=== PATIENT | male | born 1940 | race Caucasian/White ===

== ENCOUNTER 2016-04-12 15:59 | Emergency (ER) | payer MEDICARE ==
[~2016-04-12 15:59] MED LIST: ACET-58 PO; AMIT10TA PO; AMLO5TAB2 PO; ASCO10002 PO; CHOL10002 PO; CIPR500T94 PO; CRESTOR10 MG PO; EPLE25TA PO; GLUC1CAP14 PO; HYDR25TA9 PO; LEVO175T5 PO; LEVO500T38 PO; LISI40TA PO; METO50TA10 PO; MULT-208 PO; OMEP20TA63 PO; POTA10TA5 PO; TAMS0.4C97 PO; TRAM50TA PO; VITA1CAP PO
--- NOTE | 2016-04-12 16:48 | PHYS DOC ---
Past Medical History Past Medical History: Diabetes-Type II, High Cholesterol, Hypertension Past Surgical History: Other Additional Past Surgical Histo: thyroidectomy, prostate, hernia Alcohol Use: None Drug Use: None Adult General Chief Complaint Chief Complaint: ACCIDENTAL INGESTION HPI HPI Patient is a 76 year old male presents after accidentally taking his 's morning medications at around 3:40 PM this afternoon. These medications were in a cup, and he thought they were his own. He took the followin mg Plavix , 500 mg metformin, 40 mg Protonix, 3.125 mg Corag, 60 mg Cymbalta, and 325 mg ferrous sulfate. He denies any acute illness or symptoms. He says that he feels fine, but just wanted to make sure that these medications would not cause him any problems. Review of Systems Review of Systems Constitutional: Denies fever or chills Eyes: Denies change in visual acuity, redness, or eye pain HENT: Denies nasal congestion or sore throat Respiratory: Denies cough or shortness of breath Cardiovascular: Denies chest pain or palpitations. GI: Denies abdominal pain, nausea, vomiting, bloody stools or diarrhea : Denies dysuria or hematuria Musculoskeletal: Denies back pain or joint pain Integument: Denies rash or skin lesions Neurologic: Denies headache, focal weakness or sensory changes Allergies Allergies Allergies Coded Allergies Type Severity Reaction Last Updated Verified Sulfa (Sulfonamide Antibiotics) Allergy Intermediate 04/14/14 Yes NSAIDS (Non-Steroidal Anti-Inflamma Adverse Reaction Intermediate hematuria Yes Physical Exam Physical Exam Constitutional: Well developed, well nourished, no acute distress, non-toxic appearance. HENT: Normocephalic, atraumatic, bilateral external ears normal, oropharynx moist, no oral exudates, nose normal. Eyes: PERRLA, EOMI, conjunctiva normal, no discharge. Neck: Normal range of motion, no tenderness, supple, no stridor. Cardiovascular:Heart rate regular rhythm, no murmur Lungs & Thorax: Bilateral breath sounds clear to auscultation Abdomen: Bowel sounds normal, soft, no tenderness, no masses, no pulsatile masses. Skin: Warm, dry, no erythema, no rash. Back: No tenderness, no CVA tenderness. Extremities: No tenderness, no cyanosis, ROM intact, no edema. Neurologic: Alert and oriented X 3, normal motor function, no focal deficits noted. Psychologic: Affect normal, judgement normal, mood normal. Current Patient Data Vital Signs Vital Signs Date Time Temp Pulse Resp B/P Pulse Ox O2 Delivery O2 Flow Rate FiO2 04/12/16 16:05 97.5 91 18 164/93 99 Room Air 97.5 Lab Values Laboratory Tests Test 04/12/16 16:13 Glucose (Fingerstick) 159mg/dL (70-99) H EKG EKG [] Radiology/Procedures Radiology/Procedures [] Course & Med Decision Making Course & Med Decision Making Pertinent Labs and Imaging studies reviewed. (See chart for details) Patient looks well and has stable vital signs. He has no acute physical complaints. It is unlikely that single doses of his 's medications are going to cause him any problems or symptoms. Return precautions were discussed and primary care follow-up was recommended. All questions were answered prior to discharge. Dragon Disclaimer Dragon Disclaimer This electronic medical record was generated, in whole or in part, using a voice recognition dictation system. Departure Departure Impression: Primary Impression: Accidental medication error Disposition: 01 HOME, SELF-CARE Condition: GOOD Referrals: BARBARA WHITESIDE (PCP) Patient Instructions: Basics of Medication Management Additional Instructions: If you develop any concerning changes or symptoms, return to the emergency Department. Otherwise, be very careful with your medications. Follow-up with your primary doctor in clinic soon. Problem Qualifiers Primary Impression: Accidental medication error Encounter type: initial encounter Qualified Code: T50.901A - Poisoning by unspecified drugs, medicaments and biological substances, accidental ( unintentional), initial encounter RADHA SORTO MD Apr 12, 2016 16:48
[2016-04-12 17:00] VITALS: BP 155/103
== END 2016-04-12 17:21 | disposition home or self-care (01) ==
LOC: ER 15:59
DX: T45.521A Poisoning by antithrombotic drugs, accidental (unintentional), initial encounter (principal); T46.5X1A Poisoning by other antihypertensive drugs, accidental (unintentional), initial encounter; T43.211A Poisoning by selective serotonin and norepinephrine reuptake inhibitors, accidental (unintentional), initial encounter; T45.4X1A Poisoning by iron and its compounds, accidental (unintentional), initial encounter; E11.9 Type 2 diabetes mellitus without complications; E78.00 Pure hypercholesterolemia, unspecified; I10 Essential (primary) hypertension; Z88.2 Allergy status to sulfonamides; Z88.6 Allergy status to analgesic agent; Y92.89 Other specified places as the place of occurrence of the external cause
CPT/HCPCS: 82947; 99283

== ENCOUNTER → 2016-06-06 | Outpatient (CLI) | payer MEDICARE ==
--- NOTE | 2016-06-06 15:56 | KCIC ---
Examination: CT of the abdomen pelvis without contrast. HISTORY History of left flank pain for 3 weeks COMPARISON 12/08/2014. TECHNIQUE Axial CT images of the abdomen pelvis were performed without contrast. Coronal sagittal reformats were performed. Exposure: One or more of the following dose reduction technique were utilized for this examination: 1. Automated exposure control. 2.Adjustment of MA and /or KV according to patient size. 3. Use of iterative reconstruction technique. Findings: The visualized bibasilar lungs are grossly appears unremarkable. No evidence of free air identified in the abdomen. The evaluation of the solid organs is limited due to lack of IV contrast. The evaluation of bowel is limited lack of oral contrast. The visualized non contrasted liver, adrenals grossly appears unremarkable. The gallbladder is mildly distended. The visualized pancreas grossly appears unremarkable. There is a peripherally calcified cystic identified in the spleen similar to prior exam likely a cyst or old hematoma. The small bowel is nondilated. The visualized appendix grossly appears unremarkable. Feces and gas noted in the colon. The urinary bladder is mildly distended. No evidence of hydronephrosis. Bilateral exophytic cortical renal cysts and a renal sinus cysts are similar to prior exam. Intrarenal collecting system calculi identified in the left kidney grossly similar to prior exam measuring up to 1 centimeter. Two small calcifications identified in the lumen of the urinary bladder posteriorly measuring up to 9.5 millimeters likely bladder calculi. Enlarged appearing prostate gland displacing the urinary bladder anteriorly, grossly similar to prior exam. Coarse calcifications identified in the prostate. There is mild thickened appearance of the urinary bladder wall. Moderate degenerative changes lumbar spine. IMPRESSION - Intrarenal collecting system calculi identified in the left kidney measuring up to 1 centimeter, similar to prior exam. No evidence of hydronephrosis. - Two small bladder calculi identified with the largest measuring 9.5 millimeters in the urinary bladder, again identified. - Enlarged appearing prostate gland again identified. - Bilateral renal cysts. Electronically signed by: Estevan Coleman (Jun 06, 2016 15:55:29)
== END | disposition home or self-care (01) ==
LOC: KCIC CT 12:12
PROVIDERS: ATTEND Urology
DX: R10.9 Unspecified abdominal pain (principal); M54.9 Dorsalgia, unspecified; N28.1 Cyst of kidney, acquired
CPT/HCPCS: 74176

== ENCOUNTER → 2016-06-13 | Outpatient (CLI) | payer MEDICARE ==
--- NOTE | 2016-06-13 17:02 | KCIC ---
MRI lumbar spine without contrast Indication: Low back pain. Multiplanar multi sequence imaging of the lumbar spine was performed without contrast. No prior studies are available for comparison. Curvature and alignment of the lumbar spine is normal. There appears to be a transitional lumbosacral vertebral body. The most inferior lumbar type vertebral body will be considered L5 for counting purposes. Vertebral body heights are maintained. No acute compression fracture is seen. No geographic marrow lesion is identified. There is multilevel degenerative disc disease. There is variable disc space narrowing and desiccation noted. The conus is unremarkable at the L1-2 level. L1-2: No definite central canal or neural foraminal stenosis is seen. L2-3: There is broad-based disc/osteophyte complex indenting the ventral thecal sac. Central canal remains patent but there is narrowing of the lateral recesses bilaterally. Mild bilateral neural foraminal narrowing is seen. L3-4: Hypertrophic facet changes with ligamentous thickening is noted. There is a right paramidline disc bulge indenting the ventral thecal sac. This does result in moderate central canal stenosis. There is also significant right lateral recess stenosis and moderate right and mild left neural foraminal stenosis. L4-5: Marked hypertrophic facet changes and ligamentous thickening does result in severe trefoil stenosis to the central canal. There is significant narrowing of bilateral lateral recesses and moderate bilateral neural foraminal stenosis. L5-S1: There is hypertrophic facet changes. Central canal is patent. Moderate left and mild right neural foraminal stenosis is seen. Paraspinous tissues demonstrate a probable cyst of the right kidney, not entirely included on this exam. Impression: Significant multilevel lumbar spondylosis with multilevel central canal, lateral recess and neural foraminal stenosis. This appears to be most severe at the L4-5 level. Please note that there is transitional lumbosacral vertebral body. Electronically signed by: Benji Nam MD (Jun 13, 2016 17:00:36)
== END | disposition home or self-care (01) ==
LOC: KCIC MRI 16:00
DX: M54.9 Dorsalgia, unspecified (principal); M47.896 Other spondylosis, lumbar region; M48.06 Spinal stenosis, lumbar region
CPT/HCPCS: 72148

== ENCOUNTER 2017-06-06 11:15 | Emergency (ER) | payer MEDICARE ==
[2017-06-06 12:25] LABS: BASO % 0 % (0-3); EOS % 0 % (0-3); HEMATOCRIT 42.5 % (39.0-53.0); HEMOGLOBIN 14.5 g/dL (13.0-17.5); LYMPH # 0.7 x10^3/uL (1.0-4.8); LYMPH % 6 % (24-48); MEAN CORPUSCULAR HEMOGLOBIN 31 pg (25-35); MEAN CORPUSCULAR HGB CONC 34 g/dL (31-37); MEAN CORPUSCULAR VOLUME 90 fL (79-100); MONO # 0.6 x10^3/uL (0.0-1.1); MONO % 5 % (0-9); NEUT # 10.3 x10^3uL (1.8-7.7); NEUT % 88 % (31-73); PLATELET COUNT 225 x10^3/uL (140-400); RED BLOOD COUNT 4.74 x10^6/uL (4.30-5.70); RED CELL DISTRIBUTION WIDTH 14.3 % (11.5-14.5); WHITE BLOOD COUNT 11.7 x10^3/uL (4.0-11.0)
[2017-06-06 12:26] LABS: ADD MAN DIFF? YES
[2017-06-06 12:50] LABS: BILIRUBIN,URINE NEGATIVE (NEG); CLARITY,URINE HAZY; COLOR,URINE YELLOW; GLUCOSE,URINE NEGATIVE (NEG)
[2017-06-06 12:51] LABS: BACTERIA,URINE FEW /HPF (0-FEW); NITRITE,URINE NEGATIVE (NEG); PROTEIN,URINE NEGATIVE (NEG-TRACE); RBC,URINE 0 /HPF (0-2); SQUAMOUS EPITHELIAL CELL,UR OCC /LPF
[2017-06-06 13:08] LABS: % BANDS 3 % (0-9); % BASOS 1 % (0-3); % LYMPHS 3 % (24-48); % MONOS 4 % (0-10); % SEGS 89 % (35-66); PLT ESTIMATE ADEQUATE (ADEQUATE)
[2017-06-06 13:14] LABS: ALBUMIN 3.8 g/dL (3.4-5.0); ALBUMIN/GLOBULIN RATIO 1.1 (1.0-1.7); ALK PHOS 121 U/L (46-116); ALT (SGPT) 42 U/L (16-63); ANION GAP 9 (6-14); AST (SGOT) 24 U/L (15-37); BLOOD UREA NITROGEN 14 mg/dL (8-26); BUN/CREATININE RATIO 13 (6-20); CARBON DIOXIDE 31 mmol/L (21-32); CHLORIDE 103 mmol/L (98-107); CREATININE 1.1 mg/dL (0.7-1.3); GFR 65.1; GLUCOSE 197 mg/dL (70-99); LIPASE 107 U/L (73-393); POTASSIUM 3.7 mmol/L (3.5-5.1); SODIUM 143 mmol/L (136-145); TOTAL BILIRUBIN 0.4 mg/dL (0.2-1.0); TOTAL PROTEIN 7.2 g/dL (6.4-8.2)
[2017-06-06] MEDS: IOHEXOL 300 MG/ML 100ML VIAL. IV (13:15)
[2017-06-06] MEDS: ONDANSETRON PF 4 MG/2 ML VIAL. IV (13:25)
[2017-06-06] MEDS: IV NORMAL SALINE 1000ML BAG 1,000 ML IV (13:25)
[2017-06-06] MEDS: fentaNYL PF VIAL 100 MCG/2 ML VIAL IV (13:30)
[2017-06-06 13:54] LABS: TROPONINI < 0.017 ng/mL (0.000-0.055)
== END 2017-06-06 16:20 | disposition home or self-care (01) ==
LOC: ER 11:15
DX: N23 Unspecified renal colic (principal); E11.9 Type 2 diabetes mellitus without complications; E78.00 Pure hypercholesterolemia, unspecified; I10 Essential (primary) hypertension; Z87.442 Personal history of urinary calculi; Z88.2 Allergy status to sulfonamides; Z88.6 Allergy status to analgesic agent
CPT/HCPCS: 36415; 74177; 80053; 81001; 83690; 84484; 85007; 85025; 87086; 93005; 96361; 96374; 96375; 99285-25; J2405; J3010; J7030; Q9967

== ENCOUNTER 2020-02-27 16:00 | Emergency (ER) | payer MEDICARE ==
[~2020-02-27] VITALS: Ht 182.9 cm; Wt 113.6 kg
[~2020-02-27 16:00] MED LIST changes: +AMLO-186 PO; -AMLO5TAB2 PO; +ASCO100019 PO; -ASCO10002 PO; -GLUC1CAP14 PO; +GLUCOSAMINE 1,1 EACH PO; +HYDR-2145 PO; -HYDR25TA9 PO; -LEVO500T38 PO; +LEVO500T59 PO; +LISI-130 PO; -LISI40TA PO; -METO50TA10 PO; +METO50TA29 PO; +POTA10TA12 PO; -POTA10TA5 PO
[2020-02-27 17:02] VITALS: BP 168/79
--- NOTE | 2020-02-27 18:19 | RAD ---
Exam: Left knee 3 views INDICATION: Pain TECHNIQUE: Frontal, lateral and oblique views of the left knee Comparisons: None FINDINGS: Bone mineralization is normal. No acute or healed fractures. There is a small suprapatellar effusion small amount of edema in the prepatellar subcutaneous soft tissues. IMPRESSION: Soft tissue swelling without acute fracture identified at the knee. Electronically signed by: Ambrose Vitale MD (02/27/2020 6:16 PM) [email or web address]
[2020-02-27] MEDS ORDERED: TRAM50TA PO (18:28)
--- NOTE | 2020-02-27 18:29 | PHYS DOC ---
Past Medical History Past Medical History: Diabetes-Type II, High Cholesterol, Hypertension Past Surgical History: Other Additional Past Surgical Histo: thyroidectomy, prostate, hernia Smoking Status: Never Smoker Alcohol Use: None Drug Use: None General Adult EDM: Chief Complaint: KNEE INJURY HPI: HPI: Patient is a 79 year old male with history of diabetes type 2, hypertension, high cholesterol, who presents to the ED today complaining of moderate pain to the left knee that began today, he reports he was trying to get into his truck when he bent his knee and suddenly developed left knee pain. He states the pain is worse on flexion of the knee. Denies any known injury. Denies any numbness or tingling to bilateral lower extremities. Review of Systems: Review of Systems: Constitutional: Denies fever or chills. [] Musculoskeletal: Reports left knee pain Integument: Denies rash. [] Neurologic: Denies headache, focal weakness or sensory changes. [] Psychiatric: Denies depression or anxiety. [] Heart Score: Risk Factors: Risk Factors: DM, Current or recent (<one month) smoker, HTN, HLP, family history of CAD, obesity. Risk Scores: Score 0 - 3: 2.5% MACE over next 6 weeks - Discharge Home Score 4 - 6: 20.3% MACE over next 6 weeks - Admit for Clinical Observation Score 7 - 10: 72.7% MACE over next 6 weeks - Early Invasive Strategies Allergies: Allergies: Allergies Coded Allergies Type Severity Reaction Last Updated Verified Sulfa (Sulfonamide Antibiotics) Allergy Intermediate 04/14/14 Yes NSAIDS (Non-Steroidal Anti-Inflamma Adverse Reaction Intermediate hematuria 04/14/14 Yes Physical Exam: PE: Constitutional: Well developed, well nourished, no acute distress, non-toxic appearance. [] Skin: Warm, dry, no erythema, no rash. [] Back: No tenderness, no CVA tenderness. [] Extremities: Left knee with no obvious deformity, soft tissue swelling noted on the anterior aspect of the knee. Full passive range of motion to the knee with some resistance on flexion of the knee. +2 left pedal pulse. Cap refill less than 2 seconds to left lower extremity. Neurologic: Alert and oriented X 3, normal motor function, normal sensory function, no focal deficits noted. [] Psychologic: Affect normal, judgement normal, mood normal. [] Current Patient Data: Vital Signs: Vital Signs Date Time Temp Pulse Resp B/P (MAP) Pulse Ox O2 Delivery O2 Flow Rate FiO2 02/27/20 17:02 97.8 65 20 168/79 (108) 99 Room Air 97.8 EKG: EKG: [] Radiology/Procedures: Radiology/Procedures: []PROCEDURE: KNEE LEFT 3V Exam: Left knee 3 views INDICATION: Pain TECHNIQUE: Frontal, lateral and oblique views of the left knee Comparisons: None FINDINGS: Bone mineralization is normal. No acute or healed fractures. There is a small suprapatellar effusion small amount of edema in the prepatellar subcutaneous soft tissues. IMPRESSION: Soft tissue swelling without acute fracture identified at the knee. Electronically signed by: Ambrose Guevara MD (02/27/2020 6:16 PM) [facility] DICTATED and SIGNED BY: AMBROSE GUEVARA MD DATE: 02/27/20 [id number] 0 Course & Med Decision Making: Course & Med Decision Making Pertinent Labs and Imaging studies reviewed. (See chart for details) This is a 79-year-old male patient presenting to the ED today with left knee pain, symptoms began today while trying to get into his truck. Left knee x-rays interpreted by radiologist are negative for any acute findings. Patient was discharged home. Ice elevation/encouraged. Follow-up with Ortho in 1 week Gabe Disclaimer: Gabe Disclaimer: This electronic medical record was generated, in whole or in part, using a voice recognition dictation system. Departure Departure Impression: Primary Impression: Left knee sprain Qualified Codes: S83.92XA - Sprain of unspecified site of left knee, initial encounter Disposition: 01 DC HOME SELF CARE/HOMELESS Condition: STABLE Referrals: AMRIK BRIGGS DO (PCP) COMPA MARQUEZ MD follow up in one week Patient Instructions: Knee Sprain, [id number] Additional Instructions: You were evaluated for left knee pain, your left knee x-rays were negative with no acute findings. Rest and elevate the knee. Take the prescribed medications as needed for pain. Follow-up with the primary care doctor in 1 week denies Scripts Tramadol Hcl (TRAMADOL HCL) 50 Mg Tablet 50 MG PO Q6HRS PRN for PAIN, #12 TAB Prov: LARISSA NJ APRN 02/27/20 LARISSA NJ APRN Feb 27, 2020 18:29
== END 2020-02-27 18:54 | disposition home or self-care (01) ==
LOC: ER 16:00
DX: S83.8X2A Sprain of other specified parts of left knee, initial encounter (principal); R60.0 Localized edema; E11.9 Type 2 diabetes mellitus without complications; E78.00 Pure hypercholesterolemia, unspecified; I10 Essential (primary) hypertension; Z90.89 Acquired absence of other organs; Z98.890 Other specified postprocedural states; Z88.2 Allergy status to sulfonamides; Z88.8 Allergy status to other drugs, medicaments and biological substances; X50.9XXA Other and unspecified overexertion or strenuous movements or postures, initial encounter; Y93.89 Activity, other specified; Y92.89 Other specified places as the place of occurrence of the external cause; Y99.8 Other external cause status
CPT/HCPCS: 73562; 99283

== ENCOUNTER 2020-05-26 13:08 | Emergency (ER) | payer MEDICARE ==
[~2020-05-26] VITALS: Ht 175.3 cm; Wt 104.5 kg
[2020-05-26 13:20] VITALS: BP 182/79
--- NOTE | 2020-05-26 13:51 | RAD ---
EXAM: Pelvis and right hip, 2 views. HISTORY: Pain. Popping. COMPARISON: None. FINDINGS: A frontal view the pelvis and 2 views of the right hip are obtained. There is no fracture, dislocation or subluxation. There is degenerative change at the lower lumbar levels. There is calcifi cation overlying the left midabdomen likely due to a previously demonstrated renal stone. IMPRESSION: No acute osseous finding. Electronically signed by: Lana Medeiros MD (05/26/2020 1:49 PM) [id number]
--- NOTE | 2020-05-26 14:01 | ED.ADGEN ---
Past Medical History Past Medical History: Diabetes-Type II, High Cholesterol, Hypertension Past Surgical History: Knee Replacement, Other Additional Past Surgical Histo: thyroidectomy, prostate, hernia Smoking Status: Never Smoker Alcohol Use: None Drug Use: None General Adult EDM: Chief Complaint: HIP PAIN HPI: HPI: Patient is a 80 year old male who presents emergency department with complaints of right hip pain near the medial part of his pelvis after feeling a pop in his hip while coming down off of a ladder from his attic. Patient denies any numbness, tingling, or weakness of his extremity. He denies any inability to ambulate since feeling the pop. Patient denies any saddle anesthesia, loss of bowel/bladder control, back pain, or fever. He currently rates his pain a 3 out of 10 on the pain scale, he denies any alleviating or exacerbating factors. Review of Systems: Review of Systems: Complete ROS is negative unless otherwise noted in HPI. Allergies: Allergies: Allergies Coded Allergies Type Severity Reaction Last Updated Verified Sulfa (Sulfonamide Antibiotics) Allergy Intermediate 04/14/14 Yes NSAIDS (Non-Steroidal Anti-Inflamma Adverse Reaction Intermediate hematuria 04/14/14 Yes Physical Exam: PE: See Above Constitutional: Well developed, well nourished, no acute distress, non-toxic appearance, obese. [] HENT: Normocephalic, atraumatic, bilateral external ears normal, nose normal. [] Eyes: PERRLA, EOMI, conjunctiva normal, no discharge. [] Neck: Normal range of motion, no stridor. [] Cardiovascular:Heart rate regular rhythm Lungs & Thorax: Respirations even and unlabored, no retractions, no respiratory distress Abdomen: soft, no tenderness Skin: Warm, dry, no erythema, no rash. [] Extremities: Right hip: No bony tenderness or obvious deformity reports medial h ip pain, no cyanosis, ROM intact, no edema, 2+ pedal pulse. [] Neurologic: Alert and oriented X 3, normal motor, normal sensory, no focal deficits noted. [] Psychologic: Affect normal, judgement normal, mood normal. [] Current Patient Data: Vital Signs: Vital Signs Date Time Temp Pulse Resp B/P (MAP) Pulse Ox O2 Delivery O2 Flow Rate FiO2 05/26/20 13:20 98.1 74 20 182/79 (113) 99 Room Air 98.1 EKG: EKG: [] Heart Score: C/O Chest Pain: No Risk Factors: Risk Factors: DM, Current or recent (<one month) smoker, HTN, HLP, family history of CAD, obesity. Risk Scores: Score 0 - 3: 2.5% MACE over next 6 weeks - Discharge Home Score 4 - 6: 20.3% MACE over next 6 weeks - Admit for Clinical Observation Score 7 - 10: 72.7% MACE over next 6 weeks - Early Invasive Strategies Radiology/Procedures: Radiology/Procedures: PROCEDURE: HIP RIGHT 2V WITH PELVIS EXAM: Pelvis and right hip, 2 views. HISTORY: Pain. Popping. COMPARISON: None. FINDINGS: A frontal view the pelvis and 2 views of the right hip are obtained. There is no fracture, dislocation or subluxation. There is degenerative change at the lower lumbar levels. There is calcification overlying the left midabdomen likely due to a previously demonstrated renal stone. IMPRESSION: No acute osseous finding. Electronically signed by: Lana Medeiros MD (05/26/2020 1:49 PM) [id number][] Course & Med Decision Making: Course & Med Decision Making Pertinent Labs and Imaging studies reviewed. (See chart for details) [] Dragon Disclaimer: Dragon Disclaimer: This electronic medical record was generated, in whole or in part, using a voice recognition dictation system. Departure Departure Impression: Primary Impression: Acute right hip pain Disposition: 01 OR HOME SELF CARE/HOMELESS Condition: STABLE Referrals: AMRIK BRIGGS DO (PCP) SUE COULTER MD Patient Instructions: Hip Pain Additional Instructions: Activity as tolerated, you can take Tylenol as needed for pain. I recommend that you follow-up with your primary care doctor or Dr. Coulter next week for repeat evaluation, return to the ER if symptoms worsen or fever develops. KAREN DONG APRN May 26, 2020 14:01
== END 2020-05-26 14:24 | disposition home or self-care (01) ==
LOC: ER 13:08
DX: M25.551 Pain in right hip (principal); E11.9 Type 2 diabetes mellitus without complications; E78.00 Pure hypercholesterolemia, unspecified; I10 Essential (primary) hypertension; Z88.2 Allergy status to sulfonamides; Z88.8 Allergy status to other drugs, medicaments and biological substances; X50.9XXA Other and unspecified overexertion or strenuous movements or postures, initial encounter; Y93.89 Activity, other specified; Y92.89 Other specified places as the place of occurrence of the external cause; Y99.8 Other external cause status
CPT/HCPCS: 73502; 99283

== ENCOUNTER 2020-08-04 11:14 | Emergency (ER) | payer MEDICARE ==
[~2020-08-04] VITALS: Ht 175.3 cm; Wt 104.6 kg
[2020-08-04 12:40] VITALS: BP 170/77
--- NOTE | 2020-08-04 14:55 | RAD ---
Site ID: [id number] EXAMINATION: 3 views of the left shoulder HISTORY: 80 years Male Reason: L shoulder pain / Spl. Instructions: / History: . COMPARISON: None. FINDINGS: No fracture, dislocation or radiopaque foreign body. There is advanced degenerative change at the left glenohumeral joint with marginal osteophytes. Mild marginal osteophytes at the left acromioclavi cular joint is seen. IMPRESSION: Advanced degenerative changes of the glenohumeral joint. Electronically signed by: Ezra Bacon MD (08/04/2020 2:53 PM) [id number]
--- NOTE | 2020-08-04 15:03 | ED.ADGEN ---
Past Medical History Past Medical History: Diabetes-Type II, High Cholesterol, Hypertension Past Surgical History: Knee Replacement Additional Past Surgical Histo: thyroidectomy, prostate, hernia Smoking Status: Never Smoker Alcohol Use: None Drug Use: None General Adult EDM: Chief Complaint: SHOULDER INJURY HPI: HPI: Patient is a 80 year old male who presents emergency department with complaints of left shoulder pain after sneezing hard. Patient states the pain began about a week ago. He denies any injury or fall. Patient reports he has had problems with pain in the shoulder before he denies any chest pain, shortness of breath, palpitations, diaphoresis, nausea, vomiting, diarrhea, abdominal pain, back pain, fatigue, or fever. Patient states he is right-handed. He currently rates the pain a 7 out of 10 on the pain scale, he denies any alleviating factors, the pain is worse with movement. Review of Systems: Review of Systems: Complete ROS is negative unless otherwise noted in HPI. Current Medications: Current Medications Medications (Trade) Dose Ordered Sig/Naida Start Time Stop Time Status Last Admin Dose Admin Dexamethasone (Decadron) 4 mg STK-MED ONCE 08/04/20 15:09 08/04/20 15:10 DC Dexamethasone Sodium Phosphate (Decadron) 10 mg 1X ONCE 08/04/20 15:15 08/04/20 15:16 DC 08/04/20 15:17 10 MG Allergies: Allergies: Allergies Coded Allergies Type Severity Reaction Last Updated Verified Sulfa (Sulfonamide Antibiotics) Allergy Intermediate 04/14/14 Yes NSAIDS (Non-Steroidal Anti-Inflamma Adverse Reaction Intermediate hematuria 04/14/14 Yes Physical Exam: PE: See Above Constitutional: Well developed, well nourished, no acute distress, non-toxic appearance, appears uncomfortable. [] HENT: Normocephalic, atraumatic, bilateral external ears normal, nose normal. [] Eyes: PERRLA, EOMI, conjunctiva normal, no discharge. [] Neck: Normal range of motion, no stridor. [] Cardiovascular:Heart rate regular rhythm Lungs & Thorax: Respirations even and unlabored, no retractions, no respiratory distress Skin: Warm, dry, no erythema, no rash. [] Extremities: Left shoulder: Limited range of motion due to pain, no obvious deformity, no crepitus, 2+ radial pulse no cyanosis, no edema Neurologic: Alert and oriented X 3, normal sensory, no focal deficits noted. [] Psychologic: Affect normal, judgement normal, mood normal. [] Current Patient Data: Vital Signs: Vital Signs Date Time Temp Pulse Resp B/P (MAP) Pulse Ox O2 Delivery O2 Flow Rate FiO2 08/04/20 12:40 97.9 71 16 170/77 (108) 98 Room Air 97.9 EKG: EKG: [] Heart Score: C/O Chest Pain: No Risk Scores: Score 0 - 3: 2.5% MACE over next 6 weeks - Discharge Home Score 4 - 6: 20.3% MACE over next 6 weeks - Admit for Clinical Observation Score 7 - 10: 72.7% MACE over next 6 weeks - Early Invasive Strategies Radiology/Procedures: Radiology/Procedures: PROCEDURE: SHOULDER 2+V LEFT Site ID: [id number] EXAMINATION: 3 views of the left shoulder HISTORY: 80 years Male Reason: L shoulder pain / Spl. Instructions: / History: . COMPARISON: None. FINDINGS: No fracture, dislocation or radiopaque foreign body. There is advanced degenerative change at the left glenohumeral joint with marginal osteophytes. Mild marginal osteophytes at the left acromioclavicular joint is seen. IMPRESSION: Advanced degenerative changes of the glenohumeral joint. Electronically signed by: Ezra Bacon MD (08/04/2020 2:53 PM) [id number][] Course & Med Decision Making: Course & Med Decision Making Pertinent Labs and Imaging studies reviewed. (See chart for details) 80-year-old male presented emergency department with complaints of left shoulder pain. X-ray revealed arthritis of the left shoulder. Patient states he has had prior orthopedic treatment with Dr. Aldana and he would like to follow-up with him. Prescription written for hydrocodone to take as needed for severe pain. Patient instructed that he cannot take more than 8 tablets extra strength Tylenol in 1 day, he was advised that there is Tylenol and every tablet of hydrocodone. Patient verbalized an understanding of home care, medications, follow-up, and return to ED instructions and was in agreement with the plan of care. Dragon Disclaimer: Dragon Disclaimer: This electronic medical record was generated, in whole or in part, using a voice recognition dictation system. 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 Recommend application of ice, elevati on, and rest of affected extremity. Wear the sling that was placed as needed for comfort. Make sure that you do stretch her shoulder to prevent frozen shoulder. Follow-up with Dr. Aldana for further evaluation, Return to the ER if your symptoms worsen. Scripts Hydrocodone Bit/Acetaminophen (HYDROCODONE-APAP 5-325 ) 1 Tab Tablet 0.5-1 TAB PO PRN Q6HRS PRN for SEVERE PAIN 7-10, #8 TAB 0 Refills Prov: KAREN DONG APRN 08/04/20 Problem Qualifiers Primary Impression: Left shoulder pain Chronicity: acute Qualified Codes: M25.512 - Pain in left shoulder KAREN DONG [employer]ANSITION PROGRAM MANAGER August 04, 2020 15:03
[2020-08-04] MEDS ORDERED: METR-34 PO (15:08)
[2020-08-04] MEDS ORDERED: DEXAMETHASONE 4 MG TABLET ONE (15:09)
[2020-08-04] MEDS ORDERED: DEXAMETHASONE SOD PHOS 20 MG/5 ML VIAL. PO ONE (15:15)
[2020-08-04] MEDS ORDERED: HYDR-2761 PO (15:42)
== END 2020-08-04 15:57 | disposition home or self-care (01) ==
LOC: ER 11:14
DX: M19.012 Primary osteoarthritis, left shoulder (principal); E11.9 Type 2 diabetes mellitus without complications; E78.00 Pure hypercholesterolemia, unspecified; I10 Essential (primary) hypertension; Z88.2 Allergy status to sulfonamides; Z88.6 Allergy status to analgesic agent
CPT/HCPCS: 73030; 99283; J1100

== ENCOUNTER → 2020-12-13 | Outpatient (CLI) | payer MEDICARE ==
[~2020-12-13] MED LIST changes: +HYDR-2761 PO; +METR-34 PO
--- NOTE | 2020-12-13 20:10 | RAD ---
Chest radiograph 12/13/2020 5:05 PM INDICATION: Preoperative to left shoulder surgery. COMPARISON: None available TECHNIQUE: Frontal and lateral views of the chest are provided. FINDINGS: The cardiomediastinal silhouette is within normal limits. There are no pleural effusions. There is no pulmonary vascular congestion. There is no pneumothorax. The lungs are clear. No significant osseous abnormality is identified. IMPRESSION: No acute cardiopulmonary process. Electronically signed by: Cee Morley MD (12/13/2020 8:08 PM) [facility]
== END ==
LOC: RAD 16:09
DX: Z01.818 Encounter for other preprocedural examination (principal); R06.02 Shortness of breath
CPT/HCPCS: 71046

== ENCOUNTER 2021-04-17 13:06 | Inpatient (IN) | payer MEDICARE ==
[~2021-04-17] VITALS: Ht 175.3 cm; Wt 113.2 kg
[2021-04-17] MEDS ORDERED: MORPHINE SULFATE 4 MG/ML INJ. IV/SQ PRN (13:45)
[2021-04-17] MEDS ORDERED: NITROGLYCERIN SUBLINGUAL 0.4 MG BOTTLE OF 25. SL PRN ×2 (13:45→17:15)
[2021-04-17] MEDS ORDERED: ASPIRIN 325 MG TABLET PO ONE (13:45)
--- NOTE | 2021-04-17 14:12 | RAD ---
XR CHEST 1V History: Reason: chest pain, SOA / Spl. Instructions: / History: Comparison: December 04 Findings: No consolidation or pleural effusion. Normal heart size. No pneumothorax. Left shoulder arthroplasty. Impression: 1. No acute cardiopulmonary process. Electronically signed by: Porfirio Goodman DO (04/17/2021 2:09 PM) [facility]
[2021-04-17 14:28] LABS: BASO # 0.1 x10^3/uL (0.0-0.2); BASO % 1 % (0-3); EOS # 0.1 x10^3/uL (0.0-0.7); EOS % 2 % (0-3); HEMATOCRIT 42.8 % (39.0-53.0); HEMOGLOBIN 14.2 g/dL (13.0-17.5); LYMPH # 1.1 x10^3/uL (1.0-4.8); LYMPH % 14 % (24-48); MEAN CORPUSCULAR HEMOGLOBIN 30 pg (25-35); MEAN CORPUSCULAR HGB CONC 33 g/dL (31-37); MEAN CORPUSCULAR VOLUME 92 fL (79-100); MONO # 0.6 x10^3/uL (0.0-1.1); MONO % 8 % (0-9); NEUT # 5.9 x10^3/uL (1.8-7.7); NEUT % 75 % (31-73); PLATELET COUNT 225 x10^3/uL (140-400); RED BLOOD COUNT 4.65 x10^6/uL (4.30-5.70); RED CELL DISTRIBUTION WIDTH 13.8 % (11.5-14.5); WHITE BLOOD COUNT 7.8 x10^3/uL (4.0-11.0)
--- NOTE | 2021-04-17 14:32 | EKG ---
[facility] [address] [place] [address] Test Date: 2021-04-17 Test Time: 13:25:38 Pat Name: RUSTY DASILVA Department: Room: Gender: M Director Of Exhibits: : 1940 Requested By: LARISSA [place] Order Number: [id number] Reading MD: Kingsley Angel MD Measurements Intervals [place] Rate: 74 P: 31 NE: 162 QRS: -21 QRSD: 72 T: -15 QT: 390 QTc: 433 Interpretive Statements SINUS RHYTHM RBBB NON-SPECIFIC ST/T CHANGES Electronically Signed On 04-18-2021 11:00:16 [employer] by Kingsley Angel MD
[2021-04-17 14:38] LABS: PROTHROMBIN TIME PATIENT 13.1 SEC (11.7-14.0)
[2021-04-17 14:44] LABS: D-DIMER 0.54 ug/mlFEU (0.00-0.50)
[2021-04-17 14:45] LABS: INFLUENZA A PATIENT NEGATIVE (NEGATIVE); INFLUENZA B PATIENT NEGATIVE (NEGATIVE)
[2021-04-17 15:08] LABS: CREATININE 0.8 mg/dL (0.7-1.3); POTASSIUM 3.5 mmol/L (3.5-5.1)
[2021-04-17 15:13] LABS: ALBUMIN 3.5 g/dL (3.4-5.0); ALBUMIN/GLOBULIN RATIO 0.9 (1.0-1.7); MAGNESIUM 2.1 mg/dL (1.8-2.4); TOTAL BILIRUBIN 0.3 mg/dL (0.2-1.0); TOTAL PROTEIN 7.2 g/dL (6.4-8.2)
--- NOTE | 2021-04-17 15:57 | PHYS DOC ---
Past Medical History Past Medical History: Diabetes-Type II, High Cholesterol, Hypertension Past Surgical History: Knee Replacement Additional Past Surgical Histo: thyroidectomy, prostate, hernia Smoking Status: Never Smoker Alcohol Use: None Drug Use: None General Adult EDM: Chief Complaint: SHORTNESS OF BREATH HPI: HPI: Patient is a 81 year old male with history of diabetes type 2, hypertension, high cholesterol, who presents the ED today complaining of mild intermittent substernal chest pain and bilateral upper chest pain with shortness of breath, symptoms have been going on for 3 or more weeks. Patient states symptoms are worse when he is doing his physical therapy exercises. He states he had left shoulder surgery on December 2020 and is currently in physical therapy. He states some of the exercises have been adjusted because of his chest pain. Patient denies any chest pain right now. Review of Systems: Review of Systems: Constitutional: Denies fever or chills. [] Eyes: Denies change in visual acuity. [] HENT: Denies nasal congestion or sore throat. [] Respiratory: Reports shortness of breath, denies coughing Cardiovascular: Reports chest pain GI: Denies abdominal pain, nausea, vomiting, bloody stools or diarrhea. [] : Denies dysuria. [] Musculoskeletal: Denies back pain or joint pain. [] Integument: Denies rash. [] Neurologic: Denies headache, focal weakness or sensory changes. [] Psychiatric: Denies depression or anxiety. [] Heart Score: C/O Chest Pain: Yes HEART Score for Chest Pain: HEART Score for Chest Pain Response (Comments) Value History Slighlty/Non-Suspicious 0 ECG Normal 0 Age > 65 2 Risk Factors >3 Risk Factors or Hx CAD 2 Troponin < Normal Limit 0 Total 4 Risk Factors: Risk Factors: DM, Current or recent (<one month) smoker, HTN, HLP, family history of CAD, obesity. Risk Scores: Score 0 - 3: 2.5% MACE over next 6 weeks - Discharge Home Score 4 - 6: 20.3% MACE over next 6 weeks - Admit for Clinical Observation Score 7 - 10: 72.7% MACE over next 6 weeks - Early Invasive Strategies Current Medications: Current Medications Medications (Trade) Dose Ordered Sig/Naida Start Time Stop Time Status Last Admin Dose Admin Aspirin (Cintia Aspirin) 325 mg 1X ONCE 04/17/21 13:45 04/17/21 13:47 DC Morphine Sulfate (Morphine Sulfate) 4 mg PRN Q15MIN PRN 04/17/21 13:45 04/18/21 13:44 Nitroglycerin (Nitrostat) 0.4 mg PRN Q5MIN PRN 04/17/21 13:45 04/18/21 13:44 Allergies: Allergies: Allergies Coded Allergies Type Severity Reaction Last Updated Verified Sulfa (Sulfonamide Antibiotics) Allergy Intermediate 04/14/14 Yes NSAIDS (Non-Steroidal Anti-Inflamma Adverse Reaction Intermediate hematuria 04/14/14 Yes Physical Exam: PE: Constitutional: Well developed, well nourished, no acute distress, non-toxic appearance. [] HENT: Normocephalic, atraumatic, bilateral external ears normal, oropharynx moist, no oral exudates, nose normal. [] Eyes: PERRLA, EOMI, conjunctiva normal, no discharge. [] Neck: Normal range of motion, no tenderness, supple, no stridor. [] Cardiovascular:Heart rate regular rhythm, no murmur [] Lungs & Thorax: Bilateral breath sounds clear to auscultation [] Abdomen: Bowel sounds normal, soft, no tenderness, no masses, no pulsatile masses. [] Skin: Warm, dry, no erythema, no rash. [] Back: No tenderness, no CVA tenderness. [] Extremities: No tenderness, no cyanosis, no clubbing, ROM intact, no edema. [] Neurologic: Alert and oriented X 3, normal motor function, normal sensory function, no focal deficits noted. [] Psychologic: Affect normal, judgement normal, mood normal. [] Current Patient Data: Labs: Laboratory Tests Test 04/17/21 14:13 04/17/21 14:15 04/17/21 14:44 White Blood Count 7.8 x10^3/uL (4.0-11.0) Red Blood Count 4.65 x10^6/uL (4.30-5.70) Hemoglobin 14.2 g/dL (13.0-17.5) Hematocrit 42.8 % (39.0-53.0) Mean Corpuscular Volume 92 fL (79-100) Mean Corpuscular Hemoglobin 30 pg (25-35) Mean Corpuscular Hemoglobin Concent 33 g/dL (31-37) Red Cell Distribution Width 13.8 % (11.5-14.5) Platelet Count 225 x10^3/uL (140-400) Neutrophils (%) (Auto) 75 % (31-73) H Lymphocytes (%) (Auto) 14 % (24-48) L Monocytes (%) (Auto) 8 % (0-9) Eosinophils (%) (Auto) 2 % (0-3) Basophils (%) (Auto) 1 % (0-3) Neutrophils # (Auto) 5.9 x10^3/uL (1.8-7.7) Lymphocytes # (Auto) 1.1 x10^3/uL (1.0-4.8) Monocytes # (Auto) 0.6 x10^3/uL (0.0-1.1) Eosinophils # (Auto) 0.1 x10^3/uL (0.0-0.7) Basophils # (Auto) 0.1 x10^3/uL (0.0-0.2) Prothrombin Time 13.1 SEC (11.7-14.0) Prothrombin Time INR 1.0 (0.8-1.1) Activated Partial Thromboplast Time 35 SEC (24-38) D-Dimer (Elidia) 0.54 ug/mlFEU (0.00-0.50) H Influenza Type A Antigen Negative (NEGATIVE) Influenza Type B Antigen Negative (NEGATIVE) SARS-CoV-2 Antigen (Rapid) Negative (NEGATIVE) Sodium Level 139 mmol/L (136-145) Potassium Level 3.5 mmol/L (3.5-5.1) Chloride Level 103 mmol/L (98-107) Carbon Dioxide Level 31 mmol/L (21-32) Anion Gap 5 (6-14) L Blood Urea Nitrogen 20 mg/dL (8-26) Creatinine 0.8 mg/dL (0.7-1.3) Estimated GFR (Cockcroft-Gault) 93.0 BUN/Creatinine Ratio 25 (6-20) H Glucose Level 146 mg/dL (70-99) H Calcium Level 9.0 mg/dL (8.5-10.1) Magnesium Level 2.1 mg/dL (1.8-2.4) Total Bilirubin 0.3 mg/dL (0.2-1.0) Aspartate Amino Transferase (AST) 20 U/L (15-37) Alanine Aminotransferase (ALT) 25 U/L (16-63) Alkaline Phosphatase 147 U/L (46-116) H Troponin I High Sensitivity 7 ng/L (4-75) PR-Uij-X-Type Natriuretic Peptide 126 pg/mL (0-449) Total Protein 7.2 g/dL (6.4-8.2) Albumin 3.5 g/dL (3.4-5.0) Albumin/Globulin Ratio 0.9 (1.0-1.7) L Procalcitonin < 0.10 ng/mL (0.00-0.10) Thyroid Stimulating Hormone (TSH) 0.822 uIU/mL (0.358-3.74) Laboratory Tests 04/17/21 14:13 Laboratory Tests 04/17/21 14:44 Vital Signs: Vital Signs Date Time Temp Pulse Resp B/P (MAP) Pulse Ox O2 Delivery O2 Flow Rate FiO2 04/17/21 13:30 99.0 76 18 154/77 (102) 96 Room Air 99.0 EKG: EK interpreted by Dr. Hurst SR HR 74 no STEMI EKG similar to 06/06/2017 Radiology/Procedures: Radiology/Procedures: []PROCEDURE: PORTABLE CHEST 1V XR CHEST 1V History: Reason: chest pain, SOA / Spl. Instructions: / History: Comparison: December 04 Findings: No consolidation or pleural effusion. Normal heart size. No pneumothorax. Left shoulder arthroplasty. Impression: 1. No acute cardiopulmonary process. Electronically signed by: Porfirio Goodman DO (04/17/2021 2:09 PM) [facility] DICTATED and SIGNED BY: PORFIRIO GOODMAN DO DATE: 04/17/21 [id number] 0 Course & Med Decision Making: Course & Med Decision Making Pertinent Labs and Imaging studies reviewed. (See chart for details) This is a 81-year-old female patient presenting to the ED today complaining of chest pain and shortness of breath intermittently for over 3 weeks, symptoms are worse on exertion during physical therapy. EKG is negative, troponin is normal, CBC CMP with no acute findings. CTA chest pending, chest x-ray is negative. Negative rapid covid. Spoke with Dr. Ludwig who accepted patient for admission Gabe Disclaimer: Gabe Disclaimer: This electronic medical record was generated, in whole or in part, using a voice recognition dictation system. Departure Departure Impression: Primary Impression: Chest pain Qualified Codes: R07.9 - Chest pain, unspecified Additional Impression: Shortness of breath Disposition: ADMITTED INPATIENT Condition: STABLE Referrals: AMRIK BRIGGS DO (PCP) LARISSA [place] APRN Apr 17, 2021 15:57
[2021-04-17] MEDS ORDERED: CONTRAST GIVEN. MC PRN (17:00)
[2021-04-17] MEDS ORDERED: IOHEXOL 350 MG/ML 100 ML VIAL. IV ONE (17:00)
[2021-04-17] MEDS ORDERED: ONDANSETRON PF 4 MG/2 ML VIAL. IVP PRN (17:15)
[2021-04-17] MEDS ORDERED: ACETAMINOPHEN 325 MG TABLET. PO PRN (17:15)
[2021-04-17] MEDS ORDERED: MORPHINE SULFATE 4 MG/ML INJ. IVP PRN (17:15)
--- NOTE | 2021-04-17 17:29 | RAD ---
Exam: CT of chest with contrast INDICATION: Short of air TECHNIQUE: Sequential axial images through the chest obtained following the administration of 100 mL of Isovue-370 IV contrast. Sagittal and coronal reformatted images were reconstructed from the axial data and reviewed. 3-D reformatted images were reconstructed from the axial data and reviewed. Exposure: One or more of the following in the visualized dose reduction techniques were utilized for this examination: 1. Automated exposure control 2. Adjustment of the MA and/or KV according to patient size 3. Use of iterative of reconstructive technique Comparisons: Chest x-ray same day FINDINGS: No enlarged mediastinal lymph nodes are identified. Heart size is normal. No pericardial effusion. Thoracic aorta has normal course and caliber. Pulmonar y artery is not enlarged. No pulmonary embolus identified within the main, lobar or segmental pulmona ry arteries. Airways are patent. Mild bronchial wall thickening is noted. No consolidation or pneumothorax. No pleural effusion or thickening. Visualized upper abdomen is unremarkable. No suspicious osseous lesions or acute fractures. IMPRESSION: 1. No pulmonary embolus identified within the main, lobar or segmental pulmonary arteries. 2. Mild bronchial wall thickening, correlate for bronchitis. Electronically signed by: Ambrose Vitale MD (04/17/2021 5:27 PM) [facility]
[2021-04-17 17:59] LABS: BILIRUBIN,URINE NEGATIVE (NEG); CLARITY,URINE CLEAR; COLOR,URINE YELLOW; NITRITE,URINE NEGATIVE (NEG); PROTEIN,URINE NEGATIVE (NEG-TRACE); UROBILINOGEN,URINE 0.2 mg/dL (0.2 mg/dL)
[2021-04-17] MEDS ORDERED: LABETALOL 20 MG/4 ML DISP.SYRIN. IVP ONE (18:00)
[2021-04-17 18:05] LABS: BARBITURATES NEG (NEG); BENZODIAZEPINES NEG (NEG); CANNABINOIDS NEG (NEG); COCAINE NEG (NEG); METHADONE NEG (NEG); OPIATES NEG (NEG); PHENCYCLIDINE NEG (NEG)
[2021-04-17 18:06] LABS: AMPHETAMINE/METHAMPHETAMINE NEG (NEG)
[2021-04-17 18:09] LABS: BACTERIA,URINE 0 /HPF (0-FEW); RBC,URINE OCC /HPF (0-2); WBC,URINE 0 /HPF (0-4)
--- NOTE | 2021-04-17 18:10 | PDOC1 ---
History and Physical Date of Admission Date of Admission DATE: 04/17/21 TIME: 18:09 Source Source: Chart review, Patient History of Present Illness History of Present Illness Patient is a 81 year old male with intermittent chest pain for a few days. he had left shoulder surgery a few months ago, and has recnelty had pain across the middle of his chest. He reports the pain is worse with acticity, not always where he would be using chest muscles, but he says the pain is sharp. No pressure, no shortness of breath, and it is substernal chest pain with shortness of breath. he has had chest pain at times with therapy, Past Medical History Cardiovascular: HTN, Hyperlipidemia Musculoskeletal: low back pain Rheumatologic: No pertinent hx Renal/: Benign prostatic enlarg. Endocrine: Diabetes Past Surgical History Past Surgical History: No pertinent history Family History Family History: No Significant Social History Smoke: No ALCOHOL: none Drugs: None Current Problem List Problem List Problems Medical Problems: (1) Chest pain Status: Acute (2) Shortness of breath Status: Acute Current Medications Current Medications Current Medications Aspirin (Cintia Aspirin) 325 mg 1X ONCE PO ; Start 04/17/21 at 13:45; Stop 04/17/21 at 13:47; Status DC Nitroglycerin (Nitrostat) 0.4 mg PRN Q5MIN PRN SL CP RATING > 1/10; Start 04/17/21 at 13:45; Stop 04/18/21 at 13:44 Morphine Sulfate (Morphine Sulfate) 4 mg PRN Q15MIN PRN IV/SQ PAIN GREATER THAN 3/10; Start 04/17/21 at 13:45; Stop 04/18/21 at 13:44 Iohexol (Omnipaque 350 Mg/ml) 100 ml 1X ONCE IV Last administered on 04/17/21at 17:03; Start 04/17/21 at 17:00; Stop 04/17/21 at 17:01; Status DC Info (CONTRAST GIVEN -- Rx MONITORING) 1 each PRN DAILY PRN MC SEE COMMENTS; Start 04/17/21 at 17:00; Stop 04/19/21 at 16:59 Ondansetron HCl (Zofran) 4 mg PRN Q8HRS PRN IVP NAUSEA/VOMITING; Start 04/17/21 at 17:15; Stop 04/18/21 at 17:14 Morphine Sulfate (Morphine Sulfate) 4 mg PRN Q2HR PRN IVP PAIN; Start 04/17/21 at 17:15; Stop 04/18/21 at 17:14 Acetaminophen (Tylenol) 650 mg PRN Q4HRS PRN PO FEVER > 100.3'F; Start 04/17/21 at 17:15; Stop 04/18/21 at 17:14 Nitroglycerin (Nitrostat) 0.4 mg PRN Q5MIN PRN SL CHEST PAIN; Start 04/17/21 at 17:15; Stop 04/18/21 at 17:14 Labetalol HCl (Normodyne Iv Push) 10 mg 1X ONCE IVP ; Start 04/17/21 at 18:00; Stop 04/17/21 at 18:02; Status DC Active Scripts Active Hydrocodone-Apap 5-325 (Hydrocodone Bit/Acetaminophen) 1 Tab Tablet 0.5-1 Tab PO PRN Q6HRS PRN Tramadol Hcl 50 Mg Tablet 50 Mg PO Q6HRS PRN Cipro (Ciprofloxacin Hcl) 500 Mg Tablet 500 Mg PO BID 5 Days Flomax (Tamsulosin Hcl) 0.4 Mg Cap.er.24h 0.4 Mg PO QHS Reported Klor-Con 10 (Potassium Chloride) 10 Meq Tablet.er 30 Meq PO DAILY Vitamin B Complex 1 Each Capsule 2 Each PO DAILY Vitamin D (Cholecalciferol (Vitamin D3)) 1,000 Unit Tablet 2,000 Unit PO DAILY Multi-Day Vitamins (Multivitamin) 1 Each Tablet 1 Tab PO DAILY Glucosamine 1,500 Complex Cp (Gluc Wood/Chondro Wood A/Vit C/Mn) 1 Each Capsule 1 Each PO BID Vitamin C (Ascorbic Acid) 1,000 Mg Tablet 1,000 Mg PO DAILY Prilosec Otc (Omeprazole Magnesium) 20 Mg Tablet.dr 1 Tab PO DAILY Acetaminophen Extra Strength (Acetaminophen) 500 Mg Tablet 1,000 Mg PO Q4HRS PRN Tramadol Hcl 50 Mg Tablet 2 Tab PO PRN Q6HRS PRN Levothyroxine Sodium 175 Mcg Tablet 1 Tab PO DAILY Amlodipine Besylate 5 Mg Tablet 1.5 Tab PO HS Crestor (Rosuvastatin Calcium) 10 Mg Tablet 1 Tab PO DAILY Inspra (Eplerenone) 25 Mg Tablet 25 Mg PO BID Amitriptyline Hcl 10 Mg Tablet 1 Tab PO QHS Metoprolol Succinate 50 Mg Tab.er.24h 50 Mg PO BID Hydrochlorothiazide Tablet (Hydrochlorothiazide) 25 Mg Tablet 1 Tab PO DAILY Lisinopril 40 Mg Tablet 1 Tab PO DAILY Allergies Allergies: Coded Allergies: Sulfa (Sulfonamide Antibiotics) (Verified Allergy, Intermediate, 04/14/14) NSAIDS (Non-Steroidal Anti-Inflamma (Verified Adverse Reaction, Intermediate, hematuria, 04/14/14) ROS General: No: Chills, Night Sweats, Fatigue, Malaise, Appetite, Other PSYCHOLOGICAL ROS: No: Anxiety, Behavioral Disorder, Concentration difficultie, Decreased libido, Depression, Disorientation, Hallucinations, Hostility, Irritablity, Memory difficulties, Mood Swings, Obsessive thoughts, Physical abuse, Sexual abuse, Sleep disturbances, Suicidal ideation, Other Eyes: No Blurry vision, No Decreased vision, No Double vision, No Dry eyes, No Excessive tearing, No Eye Pain, No Itchy Eyes, No Loss of vision, No Photophobia, No Scotomata, No Uses contacts, No Uses glasses, No Other Respiratory: No: Cough, Hemoptysis, Orthopnea, Pleuritic Pain, Shortness of breath, SOB with excertion, Sputum Changes, Stridor, Tachypnea, Wheezing, Other Cardiovascular: yes Chest Pain Gastrointestinal: No Nausea, No Vomiting, No Abdominal Pain, No Diarrhea, No Constipation, No Melena, No Hematochezia, No Other Musculoskeletal: Yes Joint Stiffness; No Gait Disturbance, No Joint Pain, No Joint Swelling, No Muscle Pain, No Muscular Weakness, No Pain In:, No Swelling In:, No Other Neurological: No Behavorial Changes, No Bowel/Bladder ControlChng, No Confusion, No Dizziness, No Gait Disturbance, No Headaches, No Impaired Coord/balance, No Memory Loss, No Numbness/Tingling, No Seizures, No Speech Problems, No Tremors, No Visual Changes, No Weakness, No Other Skin: Yes Dry Skin; No Eczema, No Hair Changes, No Lumps, No Mole Changes, No Mottling, No Nail Changes, No Pruritus, No Rash, No Skin Lesion Changes, No Other, No Acne Physical Exam General: Alert, Cooperative, No acute distress HEENT: Atraumatic, Mucous membr. moist/pink Heart: no gallops, no murmurs, irregularly irregular Extremities: No clubbing, No edema Skin: No rashes, No significant lesion Neuro: Normal speech, Normal tone, Cranial nerves 3-12 NL Psych/Mental Status: Mental status NL, Mood NL Vitals Vitals Vital Signs Date Time Temp Pulse Resp B/P (MAP) Pulse Ox O2 Delivery O2 Flow Rate FiO2 04/17/21 13:30 99.0 76 18 154/77 (102) 96 Room Air 99.0 Labs Labs Laboratory Tests Test 04/17/21 14:13 04/17/21 14:15 04/17/21 14:44 04/17/21 17:48 White Blood Count 7.8 x10^3/uL (4.0-11.0) Red Blood Count 4.65 x10^6/uL (4.30-5.70) Hemoglobin 14.2 g/dL (13.0-17.5) Hematocrit 42.8 % (39.0-53.0) Mean Corpuscular Volume 92 fL (79-100) Mean Corpuscular Hemoglobin 30 pg (25-35) Mean Corpuscular Hemoglobin Concent 33 g/dL (31-37) Red Cell Distribution Width 13.8 % (11.5-14.5) Platelet Count 225 x10^3/uL (140-400) Neutrophils (%) (Auto) 75 % (31-73) Lymphocytes (%) (Auto) 14 % (24-48) Monocytes (%) (Auto) 8 % (0-9) Eosinophils (%) (Auto) 2 % (0-3) Basophils (%) (Auto) 1 % (0-3) Neutrophils # (Auto) 5.9 x10^3/uL (1.8-7.7) Lymphocytes # (Auto) 1.1 x10^3/uL (1.0-4.8) Monocytes # (Auto) 0.6 x10^3/uL (0.0-1.1) Eosinophils # (Auto) 0.1 x10^3/uL (0.0-0.7) Basophils # (Auto) 0.1 x10^3/uL (0.0-0.2) Prothrombin Time 13.1 SEC (11.7-14.0) Prothromb Time International Ratio 1.0 (0.8-1.1) Activated Partial Thromboplast Time 35 SEC (24-38) D-Dimer (Elidia) 0.54 ug/mlFEU (0.00-0.50) Influenza Type A Antigen Negative (NEGATIVE) Influenza Type B Antigen Negative (NEGATIVE) SARS-CoV-2 Antigen (Rapid) Negative (NEGATIVE) Sodium Level 139 mmol/L (136-145) Potassium Level 3.5 mmol/L (3.5-5.1) Chloride Level 103 mmol/L (98-107) Carbon Dioxide Level 31 mmol/L (21-32) Anion Gap 5 (6-14) Blood Urea Nitrogen 20 mg/dL (8-26) Creatinine 0.8 mg/dL (0.7-1.3) Estimated GFR (Cockcroft-Gault) 93.0 BUN/Creatinine Ratio 25 (6-20) Glucose Level 146 mg/dL (70-99) Calcium Level 9.0 mg/dL (8.5-10.1) Magnesium Level 2.1 mg/dL (1.8-2.4) Total Bilirubin 0.3 mg/dL (0.2-1.0) Aspartate Amino Transf (AST/SGOT) 20 U/L (15-37) Alanine Aminotransferase (ALT/SGPT) 25 U/L (16-63) Alkaline Phosphatase 147 U/L (46-116) Troponin I High Sensitivity 7 ng/L (4-75) QJ-Kkl-M-Type Natriuretic Peptide 126 pg/mL (0-449) Total Protein 7.2 g/dL (6.4-8.2) Albumin 3.5 g/dL (3.4-5.0) Albumin/Globulin Ratio 0.9 (1.0-1.7) Procalcitonin < 0.10 ng/mL (0.00-0.10) Thyroid Stimulating Hormone (TSH) 0.822 uIU/mL (0.358-3.74) Urine Opiates Screen Neg (NEG) Urine Methadone Screen Neg (NEG) Urine Barbiturates Neg (NEG) Urine Phencyclidine Screen Neg (NEG) Urine Amphetamine/Methamphetamine Neg (NEG) Urine Benzodiazepines Screen Neg (NEG) Urine Cocaine Screen Neg (NEG) Urine Cannabinoids Screen Neg (NEG) Urine Ethyl Alcohol Neg (NEG) Laboratory Tests Test 04/17/21 14:13 04/17/21 14:15 04/17/21 14:44 04/17/21 17:48 White Blood Count 7.8 x10^3/uL (4.0-11.0) Red Blood Count 4.65 x10^6/uL (4.30-5.70) Hemoglobin 14.2 g/dL (13.0-17.5) Hematocrit 42.8 % (39.0-53.0) Mean Corpuscular Volume 92 fL (79-100) Mean Corpuscular Hemoglobin 30 pg (25-35) Mean Corpuscular Hemoglobin Concent 33 g/dL (31-37) Red Cell Distribution Width 13.8 % (11.5-14.5) Platelet Count 225 x10^3/uL (140-400) Neutrophils (%) (Auto) 75 % (31-73) Lymphocytes (%) (Auto) 14 % (24-48) Monocytes (%) (Auto) 8 % (0-9) Eosinophils (%) (Auto) 2 % (0-3) Basophils (%) (Auto) 1 % (0-3) Neutrophils # (Auto) 5.9 x10^3/uL (1.8-7.7) Lymphocytes # (Auto) 1.1 x10^3/uL (1.0-4.8) Monocytes # (Auto) 0.6 x10^3/uL (0.0-1.1) Eosinophils # (Auto) 0.1 x10^3/uL (0.0-0.7) Basophils # (Auto) 0.1 x10^3/uL (0.0-0.2) Prothrombin Time 13.1 SEC (11.7-14.0) Prothromb Time International Ratio 1.0 (0.8-1.1) Activated Partial Thromboplast Time 35 SEC (24-38) D-Dimer (Elidia) 0.54 ug/mlFEU (0.00-0.50) Influenza Type A Antigen Negative (NEGATIVE) Influenza Type B Antigen Negative (NEGATIVE) SARS-CoV-2 Antigen (Rapid) Negative (NEGATIVE) Sodium Level 139 mmol/L (136-145) Potassium Level 3.5 mmol/L (3.5-5.1) Chloride Level 103 mmol/L (98-107) Carbon Dioxide Level 31 mmol/L (21-32) Anion Gap 5 (6-14) Blood Urea Nitrogen 20 mg/dL (8-26) Creatinine 0.8 mg/dL (0.7-1.3) Estimated GFR (Cockcroft-Gault) 93.0 BUN/Creatinine Ratio 25 (6-20) Glucose Level 146 mg/dL (70-99) Calcium Level 9.0 mg/dL (8.5-10.1) Magnesium Level 2.1 mg/dL (1.8-2.4) Total Bilirubin 0.3 mg/dL (0.2-1.0) Aspartate Amino Transf (AST/SGOT) 20 U/L (15-37) Alanine Aminotransferase (ALT/SGPT) 25 U/L (16-63) Alkaline Phosphatase 147 U/L (46-116) Troponin I High Sensitivity 7 ng/L (4-75) BM-Iys-A-Type Natriuretic Peptide 126 pg/mL (0-449) Total Protein 7.2 g/dL (6.4-8.2) Albumin 3.5 g/dL (3.4-5.0) Albumin/Globulin Ratio 0.9 (1.0-1.7) Procalcitonin < 0.10 ng/mL (0.00-0.10) Thyroid Stimulating Hormone (TSH) 0.822 uIU/mL (0.358-3.74) Urine Opiates Screen Neg (NEG) Urine Methadone Screen Neg (NEG) Urine Barbiturates Neg (NEG) Urine Phencyclidine Screen Neg (NEG) Urine Amphetamine/Methamphetamine Neg (NEG) Urine Benzodiazepines Screen Neg (NEG) Urine Cocaine Screen Neg (NEG) Urine Cannabinoids Screen Neg (NEG) Urine Ethyl Alcohol Neg (NEG) VTE Prophylaxis Ordered VTE Prophylaxis Devices: Yes VTE Pharmacological Prophylaxi: Yes Assessment/Plan Assessment/Plan chest pain, angina, r/o ACS htn BPH OA, possible costochrondritis, he declined a lidoderm patch amdit from ER Justifications for Admission Other Justification EVENS CROUCH MD Apr 17, 2021 18:10
[2021-04-17 21:00] VITALS: BP 209/97
[2021-04-17] MEDS ORDERED: TAMSULOSIN 0.4 MG CAP.ER.24H. PO SCH (21:00)
[2021-04-17] MEDS ORDERED: AMITRIPTYLINE HCL 10 MG TABLET. PO SCH (21:00)
--- NOTE | 2021-04-17 21:50 | NUR ---
PT ARRIVED TO UNIT PER CART, PT AMBULATED TO BED WITH STANDBY ASSIST, PT TELE MONITOR APPLIED VS OBTAINED AND STABLE PT DENIED PAIN AT THIS TIME POC EXPLAINED ASSESSMENT COMPLETED CALL LIGHT PLACED IN PT REACH WILL RESUME CARE AND CONTINUE TO MONITOR PT.
[2021-04-17] MEDS: METOPROLOL SUCC 24HR ER 50 MG TAB.ER.24H. PO SCH (21:55)
[2021-04-17 21:57] VITALS: BP 180/84
[2021-04-17] MEDS ORDERED: DEXTROSE 50% 25 GM / 50ML DISP.SYRIN. IV PRN (22:00)
[2021-04-17 22:57] VITALS: BP 125/59
[2021-04-18 02:27] VITALS: BP 132/61
[2021-04-18] MEDS ORDERED: POTA-112 PO (04:31)
[2021-04-18] MEDS ORDERED: FINA5TAB PO (04:31)
[2021-04-18] MEDS ORDERED: ATOR10TA60 PO (04:31)
[2021-04-18] MEDS ORDERED: METF-658 PO (04:31)
[2021-04-18 06:35] LABS: CREATININE 0.7 mg/dL (0.7-1.3); GFR 108.5; POTASSIUM 3.1 mmol/L (3.5-5.1)
[2021-04-18 07:00] VITALS: BP 185/85
[2021-04-18] MEDS: INSULIN LISPRO 300 UNITS/3 ML VIAL. SQ SCH ×2 (07:00→17:03)
[2021-04-18] MEDS ORDERED: LEVOTHYROXINE 175 MCG TABLET PO SCH (07:00)
[2021-04-18] MEDS ORDERED: INSULIN LISPRO 300 UNITS/3 ML VIAL. SQ SCH (08:00)
[2021-04-18] MEDS: METOPROLOL SUCC 24HR ER 50 MG TAB.ER.24H. PO SCH (08:30)
[2021-04-18] MEDS ORDERED: ATORVASTATIN CALCIUM 40 MG TABLET. PO SCH (09:00)
[2021-04-18] MEDS ORDERED: POTASSIUM CHLORIDE 10 MEQ TABLET.ER. PO SCH (09:00)
[2021-04-18] MEDS ORDERED: LISINOPRIL 20 MG TABLET PO SCH (09:00)
[2021-04-18] MEDS ORDERED: hydroCHLOROthiazide 25 MG TABLET PO SCH (09:00)
[2021-04-18] MEDS ORDERED: CHOLECALCIFEROL (VITAMIN D3) 1,000 UNIT TABLET PO SCH (09:00)
--- NOTE | 2021-04-18 09:30 | PDOC2 ---
MAHAMEDTAYLER FULLER HILARIA 04/18/21 0930: CARDIAC CONSULT DATE OF CONSULT Date of Consult DATE: 04/18/21 TIME: 09:24 REASON FOR CONSULT Reason for Consult: Chest pain REFERRING PHYSICIAN Referring Physician: Paula Marte APRN SOURCE Source: Chart review, Patient HISTORY OF PRESENT ILLNESS HISTORY OF PRESENT ILLNESS This is an 81 yo male who presented secondary to chest pain and shortness of breath. Patient reports shortness of breath with exertion for several months. He underwent left shoulder surgery in December of last year. Has been in physical therapy. This past week, he began exercises of stretching/pulling his left shoulder backwards. Report that he developed soreness on his central chest. Area is tender to touch and worse with certain movement. No associated dizziness, diaphoresis, palpitations, or nausea/vomiting. He denies any shortness of breath at rest or orthopnea. Has mild LE edema at the end of the day, but this resolved when he puts his feet up. No recent cardiac workup. PAST MEDICAL HISTORY Cardiovascular: HTN, Hyperlipidemia GI: GERD Heme/Onc: Cancer (thyroid ) Musculoskeletal: Osteoarthritis Renal/: Benign prostatic enlarg. Endocrine: Diabetes, Hypothyroidism PAST SURGICAL HISTORY Past Surgical History: Hernia Repair, Total knee replacement (right ), Tonsillectomy, Other (TURP, thyroidectomy ) FAMILY HISTORY Family History: Diabetes, Stroke SOCIAL HISTORY Smoke: No ALCOHOL: none Drugs: None Lives: with Family CURRENT MEDICATIONS CURRENT MEDICATIONS Current Medications Medications (Trade) Dose Ordered Sig/Naida Route PRN Reason Start Time Stop Time Status Last Admin Dose Admin Iohexol (Omnipaque 350 Mg/ml) 100 ml 1X ONCE IV 04/17/21 17:00 04/17/21 17:01 DC 04/17/21 17:03 Labetalol HCl (Normodyne Iv Push) 10 mg 1X ONCE IVP 04/17/21 18:00 04/17/21 18:02 DC 04/17/21 18:29 Amitriptyline HCl (Elavil) 10 mg QHS PO 04/17/21 21:00 04/17/21 21:54 Amlodipine Besylate (Norvasc) 7.5 mg HS PO 04/17/21 21:00 04/17/21 21:54 Vitamin D (Vitamin D3) 2,000 unit DAILY PO 04/18/21 09:00 04/18/21 08:29 Hydrochlorothiazide (Hydrodiuril) 25 mg DAILY PO 04/18/21 09:00 04/18/21 08:30 Levothyroxine Sodium (Synthroid) 175 mcg DAILY07 PO 04/18/21 07:00 04/18/21 05:37 Lisinopril (Prinivil) 40 mg DAILY PO 04/18/21 09:00 04/18/21 08:30 Metoprolol Succinate (Toprol Xl) 50 mg BID PO 04/17/21 21:00 04/18/21 08:30 Tamsulosin HCl (Flomax) 0.4 mg QHS PO 04/17/21 21:00 04/17/21 21:54 Atorvastatin Calcium (Lipitor) 40 mg DAILY PO 04/18/21 09:00 04/18/21 08:31 Potassium Chloride (Klor-Con) 30 meq DAILY PO 04/18/21 09:00 04/18/21 08:30 ALLERGIES ALLERGIES: Coded Allergies: Sulfa (Sulfonamide Antibiotics) (Verified Allergy, Intermediate, 04/14/14) NSAIDS (Non-Steroidal Anti-Inflamma (Verified Adverse Reaction, Intermediate, hematuria, 04/14/14) ROS Review of System 14 point ROS conducted with pertinent positives noted above in HPI PHYSICAL EXAM General: Alert, Oriented X3, Cooperative, No acute distress HEENT: Atraumatic, Mucous membr. moist/pink Lungs: Clear to auscultation, Other (central chest tenderness upon palpitation ) Abdomen: Soft, No tenderness Extremities: No edema, Normal pulses Skin: No breakdown Neuro: Normal speech, Sensation intact Psych/Mental Status: Mental status NL, Mood NL MUSCULOSKELETAL: No joint tenderness, Osteoarthritic changes both hands VITALS/I&O VITALS/I&O: Vital Signs Date Time Temp Pulse Resp B/P (MAP) Pulse Ox O2 Delivery O2 Flow Rate FiO2 04/18/21 08:30 67 185/85 04/18/21 07:00 97.5 16 95 Room Air 97.5 I & O 04/17/21 04/17/21 04/18/21 15:00 23:00 07:00 Intake Total 0 ml 150 ml Output Total 400 ml 900 ml Balance -400 ml -750 ml LABS Lab: Laboratory Tests Test 04/17/21 14:13 04/17/21 14:15 04/17/21 14:44 04/17/21 17:48 White Blood Count 7.8 x10^3/uL (4.0-11.0) Red Blood Count 4.65 x10^6/uL (4.30-5.70) Hemoglobin 14.2 g/dL (13.0-17.5) Hematocrit 42.8 % (39.0-53.0) Mean Corpuscular Volume 92 fL (79-100) Mean Corpuscular Hemoglobin 30 pg (25-35) Mean Corpuscular Hemoglobin Concent 33 g/dL (31-37) Red Cell Distribution Width 13.8 % (11.5-14.5) Platelet Count 225 x10^3/uL (140-400) Neutrophils (%) (Auto) 75 % (31-73) H Lymphocytes (%) (Auto) 14 % (24-48) L Monocytes (%) (Auto) 8 % (0-9) Eosinophils (%) (Auto) 2 % (0-3) Basophils (%) (Auto) 1 % (0-3) Neutrophils # (Auto) 5.9 x10^3/uL (1.8-7.7) Lymphocytes # (Auto) 1.1 x10^3/uL (1.0-4.8) Monocytes # (Auto) 0.6 x10^3/uL (0.0-1.1) Eosinophils # (Auto) 0.1 x10^3/uL (0.0-0.7) Basophils # (Auto) 0.1 x10^3/uL (0.0-0.2) Prothrombin Time 13.1 SEC (11.7-14.0) Prothrombin Time INR 1.0 (0.8-1.1) Activated Partial Thromboplast Time 35 SEC (24-38) D-Dimer (Elidia) 0.54 ug/mlFEU (0.00-0.50) H Influenza Type A Antigen Negative (NEGATIVE) Influenza Type B Antigen Negative (NEGATIVE) SARS-CoV-2 Antigen (Rapid) Negative (NEGATIVE) Sodium Level 139 mmol/L (136-145) Potassium Level 3.5 mmol/L (3.5-5.1) Chloride Level 103 mmol/L (98-107) Carbon Dioxide Level 31 mmol/L (21-32) Anion Gap 5 (6-14) L Blood Urea Nitrogen 20 mg/dL (8-26) Creatinine 0.8 mg/dL (0.7-1.3) Estimated GFR (Cockcroft-Gault) 93.0 BUN/Creatinine Ratio 25 (6-20) H Glucose Level 146 mg/dL (70-99) H Calcium Level 9.0 mg/dL (8.5-10.1) Magnesium Level 2.1 mg/dL (1.8-2.4) Total Bilirubin 0.3 mg/dL (0.2-1.0) Aspartate Amino Transferase (AST) 20 U/L (15-37) Alanine Aminotransferase (ALT) 25 U/L (16-63) Alkaline Phosphatase 147 U/L (46-116) H Troponin I High Sensitivity 7 ng/L (4-75) AF-Cmw-C-Type Natriuretic Peptide 126 pg/mL (0-449) Total Protein 7.2 g/dL (6.4-8.2) Albumin 3.5 g/dL (3.4-5.0) Albumin/Globulin Ratio 0.9 (1.0-1.7) L Procalcitonin < 0.10 ng/mL (0.00-0.10) Thyroid Stimulating Hormone (TSH) 0.822 uIU/mL (0.358-3.74) Urine Collection Type Unknown Urine Color Yellow Urine Clarity Clear Urine pH 7.0 (<5.0-8.0) Urine Specific [place] >=1.030 (1.000-1.030) Urine Protein Negative mg/dL (NEG-TRACE) Urine Glucose (UA) Negative mg/dL (NEG) Urine Ketones (Stick) Negative mg/dL (NEG) Urine Blood Negative (NEG) Urine Nitrite Negative (NEG) Urine Bilirubin Negative (NEG) Urine Urobilinogen Dipstick 0.2 mg/dL (0.2 mg/dL) Urine Leukocyte Esterase Negative (NEG) Urine RBC Occ /HPF (0-2) Urine WBC 0 /HPF (0-4) Urine Bacteria 0 /HPF (0-FEW) Urine Mucus Slight /LPF Urine Opiates Screen Neg (NEG) Urine Methadone Screen Neg (NEG) Urine Barbiturates Neg (NEG) Urine Phencyclidine Screen Neg (NEG) Urine Amphetamine/Methamphetamine Neg (NEG) Urine Benzodiazepines Screen Neg (NEG) Urine Cocaine Screen Neg (NEG) Urine Cannabinoids Screen Neg (NEG) Urine Ethyl Alcohol Neg (NEG) Test 04/17/21 18:35 04/17/21 20:19 04/18/21 04:05 04/18/21 07:41 Troponin I High Sensitivity 9 ng/L (4-75) 9 ng/L (4-75) Sodium Level 141 mmol/L (136-145) Potassium Level 3.1 mmol/L (3.5-5.1) L Chloride Level 103 mmol/L (98-107) Carbon Dioxide Level 32 mmol/L (21-32) Anion Gap 6 (6-14) Blood Urea Nitrogen 14 mg/dL (8-26) Creatinine 0.7 mg/dL (0.7-1.3) Estimated GFR (Cockcroft-Gault) 108.5 Glucose Level 105 mg/dL (70-99) H Calcium Level 8.0 mg/dL (8.5-10.1) L Glucose (Fingerstick) 112 mg/dL (70-99) H Laboratory Tests 04/17/21 14:13 Laboratory Tests 04/17/21 14:44 04/18/21 04:05 ASSESSMENT/PLAN ASSESSMENT/PLAN 1. Chest pain, atypical; AMI ruled out. EKG without significant acute changes. Most probable MSK in origin 2. Accelerated hypertension; remains elevated 3. Hyperlipidemia 4. Diabetes, II 5. Acquired hypothyroidism s/p thyroidectomy secondary to CA 6. Elevated d-dimer; CTA negative for PE Recommendations Home antiHTN therapy resumed Monitor trend as titrate therapy as warranted Unable to take ASA; causes hematuria Lipids Echo to assess LV systolic function Will plan outpatient ischemic evaluation. Supportive care JITENDRA VALE MD 04/18/21 1626: CARDIAC CONSULT ASSESSMENT/PLAN ASSESSMENT/PLAN The patient was seen and interviewed as well as examined at the bedside. The chart was reviewed. The case was discussed. Agree with the plan of care. TAYLER IRBY APRN Apr 18, 2021 09:30 JITENDRA VALE MD Apr 18, 2021 16:26
[2021-04-18 10:11] LABS: CHOLESTEROL/HDL RATIO 3.8
[2021-04-18 10:17] VITALS: BP 183/80
--- NOTE | 2021-04-18 11:03 | NUR ---
SS following for discharge planning. SS reviewed pt chart and discussed with pt RN. Pt is from home and is currently on room air. Cardiology consulted. COVID19 negative. ECHO ordered. SS will continue to follow for discharge planning.
[2021-04-18 15:00] VITALS: BP 142/71
--- NOTE | 2021-04-18 16:09 | PDOC ---
[employer] PROGRESS NOTE Date of Service DOS: DATE: 04/18/21 TIME: 15:50 Chief Complaint Chief Complaint A/P: Chest pain - so far AMI ruled out. Likely GERD. This most likely costochondritis from overuse injury. Accelerated hypertension - cont home meds, though should stop HCTZ given hypokalemia Hyperlipidemia - Statin Diabetes, II - sliding scale insulin Acquired hypothyroidism s/p thyroidectomy secondary to CA - cont levothyoxine suppressive dosing Elevated d-dimer; CTA negative for PE BPH - flomax OA, possible costochrondritis, he declined a lidoderm patch. Relax exercises for now History of Present Illness History of Present Illness Mr Julian is a 81 yo male with PMHx BPH, HTN who comes in c/o chest pain. Notes sharp left-sided chest pain that has been intermittent but got worse over the last 2 days notes he has been rehabilitating from shoulder surgery December 2020 and has occasionally gotten these twinges when he is over exerts himself with his rehab exercises. He has been doing shoulder but his shoulder blade touching exercises and notes this has exacerbated things. Now he is nontender shoulder exercise for 2 days he notes things have improved. No pressure, no shortness of breath, and it is substernal chest pain with shortness of breath. TSH 0.822 high-sensitivity troponin are 7 and 9 respectively EKG with no acute abnormalities due to elevated D-dimer he underwent CTPA which was negative for pulmonary embolism mild bronchial wall thickening. Patient symptoms no cough no shortness of breath. 2: At rest no chest pain no shortness of breath. Left chest wall pain reproducible with palpation and wish shoulder extension. Awaiting echo cardiogram. Relatively assuredly ruled out for an acute IN. Seen by cardiology. Vitals/I&O Vitals/I&O: Vital Signs Date Time Temp Pulse Resp B/P (MAP) Pulse Ox O2 Delivery O2 Flow Rate FiO2 04/18/21 15:00 98.2 65 20 142/71 (94) 97 Room Air 98.2 I & O 04/17/21 04/17/21 04/18/21 15:00 23:00 07:00 Intake Total 0 ml 150 ml Output Total 400 ml 900 ml Balance -400 ml -750 ml Physical Exam General: Alert, Oriented X3, Cooperative, No acute distress Lungs: Clear Abdomen: Soft, No tenderness Extremities: No edema, Normal pulses Skin: No breakdown Labs Labs: Laboratory Tests Test 04/17/21 17:48 04/17/21 18:35 04/17/21 20:19 04/18/21 04:05 Urine Collection Type Unknown Urine Color Yellow Urine Clarity Clear Urine pH 7.0 (<5.0-8.0) Urine Specific [place] >=1.030 (1.000-1.030) Urine Protein Negative mg/dL (NEG-TRACE) Urine Glucose (UA) Negative mg/dL (NEG) Urine Ketones (Stick) Negative mg/dL (NEG) Urine Blood Negative (NEG) Urine Nitrite Negative (NEG) Urine Bilirubin Negative (NEG) Urine Urobilinogen Dipstick 0.2 mg/dL (0.2 mg/dL) Urine Leukocyte Esterase Negative (NEG) Urine RBC Occ /HPF (0-2) Urine WBC 0 /HPF (0-4) Urine Bacteria 0 /HPF (0-FEW) Urine Mucus Slight /LPF Urine Opiates Screen Neg (NEG) Urine Methadone Screen Neg (NEG) Urine Barbiturates Neg (NEG) Urine Phencyclidine Screen Neg (NEG) Urine Amphetamine/Methamphetamine Neg (NEG) Urine Benzodiazepines Screen Neg (NEG) Urine Cocaine Screen Neg (NEG) Urine Cannabinoids Screen Neg (NEG) Urine Ethyl Alcohol Neg (NEG) Troponin I High Sensitivity 9 ng/L (4-75) 9 ng/L (4-75) Sodium Level 141 mmol/L (136-145) Potassium Level 3.1 mmol/L (3.5-5.1) Chloride Level 103 mmol/L (98-107) Carbon Dioxide Level 32 mmol/L (21-32) Anion Gap 6 (6-14) Blood Urea Nitrogen 14 mg/dL (8-26) Creatinine 0.7 mg/dL (0.7-1.3) Estimated GFR (Cockcroft-Gault) 108.5 Glucose Level 105 mg/dL (70-99) Calcium Level 8.0 mg/dL (8.5-10.1) Magnesium Level 2.1 mg/dL (1.8-2.4) Triglycerides Level 112 mg/dL (0-150) Cholesterol Level 144 mg/dL (0-200) LDL Cholesterol, Calculated 84 mg/dL (0-100) VLDL Cholesterol, Calculated 22 mg/dL (0-40) Non-HDL Cholesterol Calculated 106 mg/dL (0-129) HDL Cholesterol 38 mg/dL (40-60) Cholesterol/HDL Ratio 3.8 Test 04/18/21 07:41 Glucose (Fingerstick) 112 mg/dL (70-99) Assessment and Plan Assessmemt and Plan Problems Medical Problems: (1) Chest pain Status: Acute (2) Shortness of breath Status: Acute Comment Review of Relevant I have reviewed the following items maryana (where applicable) has been applied. Medications: Current Medications Medications (Trade) Dose Ordered Sig/Naida Route PRN Reason Start Time Stop Time Status Last Admin Dose Admin Iohexol (Omnipaque 350 Mg/ml) 100 ml 1X ONCE IV 04/17/21 17:00 04/17/21 17:01 DC 04/17/21 17:03 Labetalol HCl (Normodyne Iv Push) 10 mg 1X ONCE IVP 04/17/21 18:00 04/17/21 18:02 DC 04/17/21 18:29 Amitriptyline HCl (Elavil) 10 mg QHS PO 04/17/21 21:00 04/17/21 21:54 Amlodipine Besylate (Norvasc) 7.5 mg HS PO 04/17/21 21:00 04/17/21 21:54 Vitamin D (Vitamin D3) 2,000 unit DAILY PO 04/18/21 09:00 04/18/21 08:29 Hydrochlorothiazide (Hydrodiuril) 25 mg DAILY PO 04/18/21 09:00 04/18/21 08:30 Levothyroxine Sodium (Synthroid) 175 mcg DAILY07 PO 04/18/21 07:00 04/18/21 05:37 Lisinopril (Prinivil) 40 mg DAILY PO 04/18/21 09:00 04/18/21 08:30 Metoprolol Succinate (Toprol Xl) 50 mg BID PO 04/17/21 21:00 04/18/21 08:30 Tamsulosin HCl (Flomax) 0.4 mg QHS PO 04/17/21 21:00 04/17/21 21:54 Atorvastatin Calcium (Lipitor) 40 mg DAILY PO 04/18/21 09:00 04/18/21 08:31 Potassium Chloride (Klor-Con) 30 meq DAILY PO 04/18/21 09:00 04/18/21 08:30 Justifications for Admission Other Justification ELAINE WILSON MD Apr 18, 2021 16:09
--- NOTE | 2021-04-18 18:15 | NUR ---
Patient discharge home with self care today, via wheelchair, accompanied by aid. Patient is stable, IV removed, and discharge paperwork given to patient. Patient verbalized understanding of followup and discharge instruction.
--- NOTE | 2021-04-19 16:24 | CARD ---
MR#: [id number] Date of Study: 04/18/2021 Ordering Physician: TAYLER IRBY, Referring Physician: TAYLER IRBY, Tech: Ivet Campbellmary, [facility] APPROVED REPORT EXAM: Two-dimensional and M-mode echocardiogram with Doppler and color Doppler. Other Information Quality : AverageHR: 60bpm INDICATION Dyspnea Chest Pain RISK FACTORS Hypertension Hyperlipidemia Diabetes 2D DIMENSIONS Left Atrium(2D)3.6 (1.6-4.0cm)IVSd1.1 (0.7-1.1cm) Aortic Root(2D)3.3 (2.0-3.7cm)LVDd5.1 (3.9-5.9cm) LVOT Diameter2.1 (1.8-2.4cm)PWd1.1 (0.7-1.1cm) LVDs2.9 (2.5-4.0cm)FS (%) 43.4 % SV92.5 mlLVEF(%)74.3 (>50%) Aortic Valve AoV Peak Jeovanny.142.4cm/sAoV VTI30.8cm AO Peak GR.8.1mmHgLVOT VTI 27.85cm AO Mean GR.5mmHgAI P 1/2 [id number] Mitral Valve MV E Izycycvr50.1cm/sMV E Peak Gr.4mmHg MV DECEL [id number] A Udzmuqis198.4cm/s MV E Mean Gr.2mmHgE/A Ratio0.9 TDI Lateral E' P. V7.34cm/sMedial E' P. V7.14cm/s E/Lateral E'12.8E/Medial E'13.2 Tricuspid Valve TR P. [id number]/sRAP PNQDACQQ1trUh TR Peak Gr.23qgTkEMNS04vfBy Pulmonary Vein S1 Tjrxcebs77.9cm/sS2 Kmhgqacx84.22cm/s D2 Iestbwse45.2cm/sPVa wbwnvkgq148nkcg LEFT VENTRICLE The left ventricle is normal size. There is mild concentric left ventricular hypertrophy. The left ve ntricular systolic function is normal. The Ejection Fraction is 55-60%. There is normal LV segmental wall motion. Transmitral Doppler flow pattern is Grade I-abnormal relaxation pattern. RIGHT VENTRICLE The right ventricle is normal size. There is normal right ventricular wall thickness. The right ventr icular systolic function is normal. ATRIA The left atrium is borderline dilated. The right atrium is mildly dilated. The interatrial septum is intact with no evidence for an atrial septal defect or patent foramen ovale as noted on 2-D or Dopple r imaging. AORTIC VALVE The aortic valve is thickened but opens well. Doppler and Color Flow revealed trace aortic regurgitat ion. There is no significant aortic valvular stenosis. Calculated aortic valve area is 2.45 cm2 with maximum pressure gradient of 12 mmHg and mean pressure gradient of 7 mmHg. MITRAL VALVE The mitral valve is normal in structure and function. There is no evidence of mitral valve prolapse. There is no mitral valve stenosis. Doppler and Color-flow revealed trace mitral regurgitation. TRICUSPID VALVE The tricuspid valve is normal in structure and function. Doppler and Color Flow revealed trace tricus pid regurgitation with an estimated PAP of 27 mmHg. There is no tricuspid valve stenosis. PULMONIC VALVE The pulmonic valve is not well visualized. Doppler and Color Flow revealed trace pulmonic valvular re gurgitation. GREAT VESSELS The aortic root is normal in size. The ascending aorta is Mildly dilated measuring 3.65 cm. The IVC i s normal in size and collapses >50% with inspiration. PERICARDIAL EFFUSION There is no evidence of significant pericardial effusion. Critical Notification Critical Value: No <Conclusion> The left ventricular systolic function is normal. The Ejection Fraction is 55-60%. There is normal LV segmental wall motion. Transmitral Doppler flow pattern is Grade I-abnormal relaxation pattern. Trace mitral regurgitation. Trace tricuspid regurgitation with an estimated PAP of 27 mmHg. There is no evidence of significant pericardial effusion. Signed by : Thony Mancuso, Electronically Approved : 04/19/2021 16:24:01
== END 2021-04-18 18:18 | disposition home or self-care (01) | DRG 206 ==
LOC: ER 13:06 → ED HOLD 16:55 → 6 SOUTH 18:13
PROVIDERS: ADMIT Internal Medicine; ATTEND Internal Medicine
DX: M94.0 Chondrocostal junction syndrome [Tietze] (principal); K21.9 Gastro-esophageal reflux disease without esophagitis; R79.1 Abnormal coagulation profile; E11.9 Type 2 diabetes mellitus without complications; E78.00 Pure hypercholesterolemia, unspecified; E78.5 Hyperlipidemia, unspecified; E87.6 Hypokalemia; E89.0 Postprocedural hypothyroidism; I10 Essential (primary) hypertension; I20.9 Angina pectoris, unspecified; N40.0 Benign prostatic hyperplasia without lower urinary tract symptoms; Z82.3 Family history of stroke; Z83.3 Family history of diabetes mellitus; Z96.651 Presence of right artificial knee joint; M19.90 Unspecified osteoarthritis, unspecified site
CPT/HCPCS: 36415; 71045; 71275; 80048; 80053; 80061; 80307; 81001; 82962; 83735; 83880; 84145; 84443; 84484; 85025; 85379; 85610; 85730; 87040; 87428; 93005; 93306; 96374; J1815; J3490; Q9967; U0003; U0005; 99285-25; C8929; G0378

== ENCOUNTER → 2021-05-17 | Outpatient (CLI) | payer MEDICARE ==
[2021-04-18 15:00] VITALS: BP 142/71
[~2021-05-17] MED LIST changes: +ATOR10TA60 PO; +FINA5TAB PO; +METF-658 PO; +POTA-112 PO; +REGADENOSON 0.4 MG/5 ML DISP.SYRIN. IV ONE
--- NOTE | 2021-05-18 11:41 | RAD ---
MR#: [id number] Date of Study: 05/17/2021 Ordering Physician: JITENDRA VALE, Referring Physician: CLAUDIA BRANHAM Tech: YANNI Yip ARRT (Jennifer) (N) APPROVED REPORT Test Type: Pharmacological Stress Nurse/Tech: Henrietta Lebron RN Test Indications: Chest pain, shortness of air Cardiac History: Hypertension, Diabetes Medications: See Electronic Medical Record Medical History: See Electronic Medical Record Resting ECG: SR with BBB and PAC Resting Heart Rate: 82 bpm Resting Blood Pressure: 148/75mmHg Pretest Chest Pain: No chest pain Nurse/Tech Notes S1,S2 and lungs slightly diminished in the bases. Consent: The procedure was explained to the patient in lay terms. Informed consent was witnessed. David eout was entered into [employer]. History and Stress Test performed by YANNI Yip, JET (R) (N) Pharm. Details Pharmacologic stress testing was performed using 0.4mg per 5ml of regadenoson given intravenously ove r 7-10 seconds. Stress Symptoms Dyspnea POST EXERCISE Reason for Termination: Infusion complete Target HR: No Max HR: 93 bpm Max Blood Pressure: 141/62mmHg Blood Pressure response to exercise: Normal blood pressure response during stress. Heart Rate response to exercise: WNL Chest Pain: No. Arrhythmia: Yes. PAC ST Change: No. INTERPRETATION Stress EKG Conclusion: The resting EKG shows a sinus rhythm with a right bundle branch block and nons pecific ST-T wave changes. The stress EKG shows no significant changes from baseline. Abnormal resting EKG but no EKG evidence of stress-induced ischemia. Imaging Protocol IMAGE PROTOCOL: Rest Tc-99m/stress Tc-99m 1 day Rest: Stress: Viability: Radiopharm.Tc99m YkihbigixBe65a Sestamibi Rqyi65pFi 32mCi Img Date 05/17/2021 05/17/2021 Inj-Img Dwff45hsv. 60min. Rest Admin Site:IV - Right HandAdministrator:RT Jose Alejandro Nunn)(N) Stress Admin Site: IV - Right HandAdministrator: Chintan Sanz, RT (R)(N) STRESS DATA End Diast. Vol.74.0mlLVEDV index BSA34.0ml End Syst. Vol.16.0mlLVESV index BSA7.0ml Myocardial Oobm597.0gEject. Powgdhpt95.0% Stress Scores Regional WT1.00Summed WT6.00 Regional WM0.00Summed WM2.00 LV Perfusion The stress scans show a small inferior wall defect. The rest scans show a small to medium size inferior wall defect. Nuclear imaging shows no reversible ischemia. 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 Wall Motion Left ventricular systolic function is intact with an ejection fraction of 74%. LV Perf. Quant 17 Seg. SSS1.00 17 Seg. SRS0.00 17 Seg. SDS1.00 Stress Defect Extent (% LAD)0.00Rest Defect Extent (% LAD)0.00Rev. Defect Extent (% LAD)0.00 Stress Defect Extent (% LCX) 0.00Rest Defect Extent (% LCX)0.00Rev. Defect Extent (% LCX)0.00 Stress Defect Extent (% RCA)0.00Rest Defect Extent (% RCA)0.00Rev. Defect Extent (% RCA)0.00 Stress Defect Extent (% DEBI)0.00Rest Defect Extent (% DEBI)0.00Rev. Defect Extent (% DEBI)0.00 Conclusion 1. Abnormal baseline EKG but no EKG evidence of stress-induced ischemia. 2. Nuclear imaging shows no reversible ischemia. 3. 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 4. LV systolic function is intact with an ejection fraction of 74%. 5. Moderately low risk Lexiscan nuclear stress test. Signed by : Danilo Leon MD Electronically Approved : 05/18/2021 11:41:35
== END ==
LOC: NM 08:43
PROVIDERS: ATTEND Internal Medicine Cardiovascular Disease
DX: R06.02 Shortness of breath (principal); I51.9 Heart disease, unspecified; R94.31 Abnormal electrocardiogram [ECG] [EKG]; R07.9 Chest pain, unspecified
CPT/HCPCS: 78452; 93017; A9500; J2785